=== PATIENT | female | born 2000 | race African-American/Black ===

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

== ENCOUNTER 2023-08-10 02:56 | Emergency (ER) | payer SELFPAY ==
--- OUTSIDE RECORDS SUMMARY | 2023-08-10 02:59 | XMS REPORT | Continuity of Care Document ---
Author Name Unknown Address [address] [facility]. [address] [place] [address] [facility] Address [address] [facility] [address] [place] [address] Care Team Providers Care Core Shaper Sides Name Role Phone PCP, PATIENT DOES NOT HAVE A Primary Care Physic michaelle Unavailable Nurse, [facility] Attending Clinician Unavailable Hailey Mendieta MD Attending Clinician [phone] HAILEY MENDIETA Attending Clinician Unavailable Melody Prado MD Attending Clinician + [phone] MELODY PRADO Attending Clinician JUAN Rossi Attending Clinician JUAN Denton Attending Clinician Hayder triana Doctor Unassigned, [place] Attending Clinician U navailable Payers Payer Name Policy Type Policy Number Effective Date Expirati on Date Source [facility] [id number] 2023 00:00:00 Problems Condition Name Condition Details Condition Category Status Onset Date Resolution Date Last Treatment Date Treating Clinician Comments Source examinatio n or test, negative result examinatio n or test, negative result Disease Active 8-24 00:00: 00 [facility] Encounter for management and injection of depo-Prove ra Encounter for management and injection of depo-Prove ra Disease Active 09-24 00:00: 00 [facility] Need for hepatitis C screening test Need for hepatitis C screening test Disease Active 09-24 00:00: 00 [facility] Need for vaccinatio n Need for vaccinatio n Disease Active 8 00:00: 00 [facility] Other speech disturbanc e Other speech disturbanc e Disease Active 2006-02 00:00: 00 [facility] Allergies, Adverse Reactions, Alerts Allergy Name Allergy Type Status Severity Reaction(s) Onset Date Inactive Date Treating Clinician Comments Source NO KNOWN ALLERGIE S Drug Class Active [facility] Social History Social Habit Start Date Stop Date Quantity Comments Source Gender identity [facility] of tobacco use Passive smoker [facility] Alcohol intake 2023-05-18 00:00:00 2023-05-18 00:00:00 Current drinker of alcohol (finding) [facility] History of Social function 2022-12-01 00:00:00 2022-12-01 00:00:00 [facility] Exposure to SARS-CoV-2 (event) 2022-06-06 00:00:00 2022-06-16 09:32:00 Not sure [facility] Tobacco use and exposure 2021-09-24 00:00:00 2021-09-24 00:00:00 Smokeless tobacco non-user [facility] Sex Assigned At 2002 00:00:00 2000 00:00:00 [facility] Smoking Status Start Date Stop Date Source Never smoked tobacco [facility] Medications Ordered Medication Name Filled Medication Name Start Date Stop Date Current Medication? Ordering Clinician Indication Dosage Frequency Signature (SIG) Comments Components Source medroxyPROG ESTERone (DEPO-PROVE RA) syringe 150 mg 05-17 20:15: 00 05-17 19:27 :00 No [id number] 150mg 150 mg, Intramuscu lar, ONCE, 1 dose, On Wed05/18/23 at 1515, Routine [facility] medroxyPROG ESTERone (DEPO-PROVE RA) injection 150 mg 0 -09 21:15: 00 02-23 20:38 :00 No [id number] 150mg [facility] medroxyPROG ESTERone (DEPO-PROVE RA) syringe 150 mg 2022-02 0-17 14:30: 00 12-01 13:33 :00 No [id number] 150mg [facility] medroxyPROG ESTERone (DEPO-PROVE RA) syringe 150 mg 2022-0 - 14:45: 00 09-08 13:55 :00 No [id number] 150mg [facility] medroxyPROG ESTERone (DEPO-PROVE RA) syringe 150 mg 0 06-16 15:45: 00 06-16 14:54 :00 No [id number] [facility]-PROVE RA[facility] syringe 150 mg 0 -08 17:30: 00 03-25 16:33 :00 No [id number] 150mg [facility] medroxyPROG ESTERone (DEPO-PROVE RA) syringe 150 mg 2021-02-16 17:45: 00 12-31 16:48 :00 No [id number] [facility] (DEPO-PROVE RA) injection 150 mg -24 20:00: 00 10-08 19:11 :00 No [id number] 150mg Univer [facility] Immunizations Ordered Immunization Name Filled Immunization Name Date Status Comments Source SARS-COV-2 COVID-19 PFIZER VACCINE 2021-09-03 00:00:00 Completed [facility] SARS-COV-2 COVID-19 PFIZER VACCINE 2021-09-03 00:00:00 Completed [facility] SARS-COV-2 COVID-19 PFIZER VACCINE 2021-09-03 00:00:00 Completed [facility] SARS-COV-2 COVID-19 PFIZER VACCINE 2021-09-03 00:00:00 Completed [facility] SARS-COV-2 COVID-19 PFIZER VACCINE 2021-09-03 00:00:00 Completed [facility] SARS-COV-2 COVID-19 PFIZER VACCINE 2021-09-03 00:00:00 Completed [facility] SARS-COV-2 COVID-19 PFIZER VACCINE 2021-08-15 00:00:00 Completed [facility] SARS-COV-2 COVID-19 PFIZER VACCINE 2021-08-15 00:00:00 Completed [facility] SARS-COV-2 COVID-19 PFIZER VACCINE 2021-08-15 00:00:00 Completed [facility] SARS-COV-2 COVID-19 PFIZER VACCINE 2021-08-15 00:00:00 Completed [facility] SARS-COV-2 COVID-19 PFIZER VACCINE 2021-08-15 00:00:00 Completed [facility] SARS-COV-2 COVID-19 PFIZER VACCINE 2021-08-15 00:00:00 Completed [facility] Influenza Virus Vaccine 2007-02-01 00:00:00 Completed [facility] Influenza Virus Vaccine 2007-02-01 00:00:00 Completed [facility] Influenza Virus Vaccine 2007-02-01 00:00:00 Completed [facility] Influenza Virus Vaccine 2007-02-01 00:00:00 Completed [facility] Influenza Virus Vaccine 2007-02-01 00:00:00 Completed [facility] Influenza Virus Vaccine 2007-02-01 00:00:00 Completed [facility] HEPATITIS A 2006-09-22 00:00:00 Completed [facility] HEPATITIS A 2006-09-22 00:00:00 Completed [facility] HEPATITIS A 2006-09-22 00:00:00 Completed [facility] HEPATITIS A 2006-09-22 00:00:00 Completed [facility] HEPATITIS A 2006-09-22 00:00:00 Completed [facility] HEPATITIS A 2006-09-22 00:00:00 Completed [facility] Proquad (MMR/VARICELLA) 2006-08-06 00:00:00 Completed [facility] DTAP 2006-08-06 00:00:00 Completed [facility] Polio (IPV/OPV) 2006-08-06 00:00:00 Completed [facility] Proquad (MMR/VARICELLA) 2006-08-06 00:00:00 Completed [facility] DTAP 2006-08-06 00:00:00 Completed [facility] Polio (IPV/OPV) 2006-08-06 00:00:00 Completed [facility] Proquad (MMR/VARICELLA) 2006-08-06 00:00:00 Completed [facility] DTAP 2006-08-06 00:00:00 Completed [facility] Polio (IPV/OPV) 2006-08-06 00:00:00 Completed [facility] Proquad (MMR/VARICELLA) 2006-08-06 00:00:00 Completed [facility] DTAP 2006-08-06 00:00:00 Completed [facility] Polio (IPV/OPV) 2006-08-06 00:00:00 Completed [facility] Proquad (MMR/VARICELLA) 2006-08-06 00:00:00 Completed [facility] DTAP 2006-08-06 00:00:00 Completed [facility] Polio (IPV/OPV) 2006-08-06 00:00:00 Completed [facility] Proquad (MMR/VARICELLA) 2006-08-06 00:00:00 Completed [facility] DTAP 2006-08-06 00:00:00 Completed [facility] Polio (IPV/OPV) 2006-08-06 00:00:00 Completed [facility] HEPATITIS A 2006-02-12 00:00:00 Completed [facility] HEPATITIS A 2006-02-12 00:00:00 Completed [facility] HEPATITIS A 2006-02-12 00:00:00 Completed [facility] HEPATITIS A 2006-02-12 00:00:00 Completed [facility] HEPATITIS A 2006-02-12 00:00:00 Completed [facility] HEPATITIS A 2006-02-12 00:00:00 Completed [facility] DTAP 2004-09-22 00:00:00 Completed [facility] Pneumococcal 7 Conjugate, PCV7 (Prevnar7) 2004-09-22 00:00:00 Completed [facility] DTAP 2004-09-22 00:00:00 Completed [facility] Pneumococcal 7 Conjugate, PCV7 (Prevnar7) 2004-09-22 00:00:00 Completed [facility] DTAP 2004-09-22 00:00:00 Completed [facility] Pneumococcal 7 Conjugate, PCV7 (Prevnar7) 2004-09-22 00:00:00 Completed [facility] DTAP 2004-09-22 00:00:00 Completed [facility] Pneumococcal 7 Conjugate, PCV7 (Prevnar7) 2004-09-22 00:00:00 Completed [facility] DTAP 2004-09-22 00:00:00 Completed [facility] Pneumococcal 7 Conjugate, PCV7 (Prevnar7) 2004-09-22 00:00:00 Completed [facility] DTAP 2004-09-22 00:00:00 Completed [facility] Pneumococcal 7 Conjugate, PCV7 (Prevnar7) 2004-09-22 00:00:00 Completed [facility] Hep B, Adol or Pedi Dosage 2003-04-12 00:00:00 Completed [facility] Hep B, Adol or Pedi Dosage 2003-04-12 00:00:00 Completed [facility] Hep B, Adol or Pedi Dosage 2003-04-12 00:00:00 Completed [facility] Hep B, Adol or Pedi Dosage 2003-04-12 00:00:00 Completed [facility] Hep B, Adol or Pedi Dosage 2003-04-12 00:00:00 Completed [facility] Hep B, Adol or Pedi Dosage 2003-04-12 00:00:00 Completed [facility] DTAP Unknown Completed [facility] Pneumococcal 7 Conjugate, PCV7 (Prevnar7) Unknown Completed [facility] Hep B, Adol or Pedi Dosage Unknown Completed [facility] HEPATITIS A Unknown Completed [facility] Proquad (MMR/VARICELLA) Unknown Completed [facility] DTAP Unknown Completed [facility] Polio (IPV/OPV) Unknown Completed [facility] HEPATITIS A Unknown Completed [facility] Influenza Virus Vaccine Unknown Completed [facility] SARS-COV-2 COVID-19 PFIZER VACCINE Unknown Completed [facility] SARS-COV-2 COVID-19 PFIZER VACCINE Unknown Completed [facility] SARS-COV-2 COVID-19 PFIZER VACCINE Unknown Completed [facility] SARS-COV-2 COVID-19 PFIZER VACCINE Unknown Completed [facility] DTaP, Unspecified Formulation Unknown Completed [facility] DTaP, Unspecified Formulation Unknown Completed [facility] Influenza Virus Vaccine - Whole Unknown Completed [facility] HPV Unknown Completed [facility] Meningococcal Polysaccharide (groups A, C, Y and W-135) conjugate vaccine (MCV4P) Unknown Completed [facility] IPV Unknown Completed [facility] TDAP Unknown Completed [facility] DTAP Unknown Completed [facility] Pneumococcal 7 Conjugate, PCV7 (Prevnar7) Unknown Completed [facility] Hep B, Adol or Pedi Dosage Unknown Completed [facility] HEPATITIS A Unknown Completed [facility] Proquad (MMR/VARICELLA) Unknown Completed [facility] DTAP Unknown Completed [facility] Polio (IPV/OPV) Unknown Completed [facility] HEPATITIS A Unknown Completed [facility] Influenza Virus Vaccine Unknown Completed [facility] SARS-COV-2 COVID-19 PFIZER VACCINE Unknown Completed [facility] SARS-COV-2 COVID-19 PFIZER VACCINE Unknown Completed [facility] SARS-COV-2 COVID-19 PFIZER VACCINE Unknown Completed [facility] SARS-COV-2 COVID-19 PFIZER VACCINE Unknown Completed [facility] DTaP, Unspecified Formulation Unknown Completed [facility] DTaP, Unspecified Formulation Unknown Completed [facility] Influenza Virus Vaccine - Whole Unknown Completed [facility] HPV Unknown Completed [facility] Meningococcal Polysaccharide (groups A, C, Y and W-135) conjugate vaccine (MCV4P) Unknown Completed [facility] IPV Unknown Completed [facility] TDAP Unknown Completed [facility] DTAP Unknown Completed [facility] Pneumococcal 7 Conjugate, PCV7 (Prevnar7) Unknown Completed [facility] Hep B, Adol or Pedi Dosage Unknown Completed [facility] HEPATITIS A Unknown Completed [facility] Proquad (MMR/VARICELLA) Unknown Completed [facility] DTAP Unknown Completed [facility] Polio (IPV/OPV) Unknown Completed [facility] HEPATITIS A Unknown Completed [facility] Influenza Virus Vaccine Unknown Completed [facility] SARS-COV-2 COVID-19 PFIZER VACCINE Unknown Completed [facility] SARS-COV-2 COVID-19 PFIZER VACCINE Unknown Completed [facility] SARS-COV-2 COVID-19 PFIZER VACCINE Unknown Completed [facility] SARS-COV-2 COVID-19 PFIZER VACCINE Unknown Completed [facility] DTaP, Unspecified Formulation Unknown Completed [facility] DTaP, Unspecified Formulation Unknown Completed [facility] Influenza Virus Vaccine - Whole Unknown Completed [facility] HPV Unknown Completed [facility] Meningococcal Polysaccharide (groups A, C, Y and W-135) conjugate vaccine (MCV4P) Unknown Completed [facility] IPV Unknown Completed [facility] TDAP Unknown Completed [facility] DTAP Unknown Completed [facility] Pneumococcal 7 Conjugate, PCV7 (Prevnar7) Unknown Completed [facility] Hep B, Adol or Pedi Dosage Unknown Completed [facility] HEPATITIS A Unknown Completed [facility] Proquad (MMR/VARICELLA) Unknown Completed [facility] DTAP Unknown Completed [facility] Polio (IPV/OPV) Unknown Completed [facility] HEPATITIS A Unknown Completed [facility] Influenza Virus Vaccine Unknown Completed [facility] SARS-COV-2 COVID-19 PFIZER VACCINE Unknown Completed [facility] SARS-COV-2 COVID-19 PFIZER VACCINE Unknown Completed [facility] SARS-COV-2 COVID-19 PFIZER VACCINE Unknown Completed [facility] SARS-COV-2 COVID-19 PFIZER VACCINE Unknown Completed [facility] DTaP, Unspecified Formulation Unknown Completed [facility] DTaP, Unspecified Formulation Unknown Completed [facility] Influenza Virus Vaccine - Whole Unknown Completed [facility] HPV Unknown Completed [facility] Meningococcal Polysaccharide (groups A, C, Y and W-135) conjugate vaccine (MCV4P) Unknown Completed [facility] IPV Unknown Completed [facility] TDAP Unknown Completed [facility] DTAP Unknown Completed [facility] Pneumococcal 7 Conjugate, PCV7 (Prevnar7) Unknown Completed [facility] Hep B, Adol or Pedi Dosage Unknown Completed [facility] HEPATITIS A Unknown Completed [facility] Proquad (MMR/VARICELLA) Unknown Completed [facility] DTAP Unknown Completed [facility] Polio (IPV/OPV) Unknown Completed [facility] HEPATITIS A Unknown Completed [facility] Influenza Virus Vaccine Unknown Completed [facility] SARS-COV-2 COVID-19 PFIZER VACCINE Unknown Completed [facility] SARS-COV-2 COVID-19 PFIZER VACCINE Unknown Completed [facility] SARS-COV-2 COVID-19 PFIZER VACCINE Unknown Completed [facility] SARS-COV-2 COVID-19 PFIZER VACCINE Unknown Completed [facility] DTaP, Unspecified Formulation Unknown Completed [facility] DTaP, Unspecified Formulation Unknown Completed [facility] Influenza Virus Vaccine - Whole Unknown Completed [facility] HPV Unknown Completed [facility] Meningococcal Polysaccharide (groups A, C, Y and W-135) conjugate vaccine (MCV4P) Unknown Completed [facility] IPV Unknown Completed [facility] TDAP Unknown Completed [facility] Vital Signs Vital Name Observation Time Observation Value Comments S ource Respiratory rate 2023-05-18 19:26:00 18 /min [facility] Body height 2023-05-18 19:26:00 162.6 cm [facility] Body weight 2023-05-18 19:26:00 64.411 kg [facility] BMI 2023-05-18 19:26:00 24.37 kg/m2 [facility] Systolic blood pressure 2023-05-18 19:26:00 131 mm[Hg] [facility] Diastolic blood pressure 2023-05-18 19:26:00 87 mm[Hg] [facility] Heart rate 2023-05-18 19:26:00 87 /min [facility] Systolic blood pressure 2023-02-23 20:35:00 118 mm[Hg] [facility] Diastolic blood pressure 2023-02-23 20:35:00 81 mm[Hg] [facility] Heart rate 2023-02-23 20:35:00 71 /min [facility] Body temperature 2023-02-23 20:35:00 36.78 Rox [facility] Respiratory rate 2023-02-23 20:35:00 16 /min [facility] Body height 2023-02-23 20:35:00 162.6 cm [facility] Body weight 2023-02-23 20:35:00 63.458 kg [facility] BMI 2023-02-23 20:35:00 24.01 kg/m2 [facility] Oxygen saturation in Arterial blood by Pulse oximetry 2023-02-23 20:35:00 98 /min [facility] Systolic blood pressure 2022-12-01 13:25:00 137 mm[Hg] [facility] Diastolic blood pressure 2022-12-01 13:25:00 81 mm[Hg] [facility] Heart rate 2022-12-01 13:25:00 76 /min [facility] Respiratory rate 2022-12-01 13:25:00 18 /min [facility] Body height 2022-12-01 13:25:00 162.6 cm [facility] Body weight 2022-12-01 13:25:00 63.05 kg [facility] BMI 2022-12-01 13:25:00 23.86 kg/m2 [facility] Systolic blood pressure 2022-09-08 13:49:00 115 mm[Hg] [facility] Diastolic blood pressure 2022-09-08 13:49:00 73 mm[Hg] [facility] Heart rate 2022-09-08 13:49:00 67 /min [facility] Respiratory rate 2022-09-08 13:49:00 18 /min [facility] Body height 2022-09-08 13:49:00 162.6 cm [facility] Body weight 2022-09-08 13:49:00 61.689 kg [facility] BMI 2022-09-08 13:49:00 23.34 kg/m2 [facility] Systolic blood pressure 2022-06-16 14:52:00 122 mm[Hg] [facility] Diastolic blood pressure 2022-06-16 14:52:00 80 mm[Hg] [facility] Heart rate 2022-06-16 14:52:00 82 /min [facility] temperature 2022-06-16 14:52:00 36.67 Rox [facility] Respiratory rate 2022-06-16 14:52:00 16 /min [facility] Body height 2022-06-16 14:52:00 162.6 cm [facility] weight 2022-06-16 14:52:00 58.06 kg [facility] BMI 2022-06-16 14:52:00 21.97 kg/m2 [facility] Systolic blood pressure 2022-03-25 16:28:00 123 mm[Hg] [facility] Diastolic blood pressure 2022-03-25 16:28:00 86 mm[Hg] [facility] Heart rate 2022-03-25 16:28:00 89 /min [facility] Respiratory rate 2022-03-25 16:28:00 18 /min [facility] Body height 2022-03-25 16:28:00 162.6 cm [facility] Body weight 2022-03-25 16:28:00 57.607 kg [facility] BMI 2022-03-25 16:28:00 21.80 kg/m2 [facility] Systolic blood pressure 2021-12-31 16:27:00 122 mm[Hg] [facility] Diastolic blood pressure 2021-12-31 16:27:00 79 mm[Hg] [facility] Heart rate 2021-12-31 16:27:00 80 /min [facility] Body temperature 2021-12-31 16:27:00 36.89 Rox [facility] Respiratory rate 2021-12-31 16:27:00 16 /min [facility] Body height 2021-12-31 16:27:00 162.6 cm [facility] Body weight 2021-12-31 16:27:00 59.194 kg [facility] BMI 2021-12-31 16:27:00 22.40 kg/m2 [facility] Systolic blood pressure 2021-10-08 19:03:00 120 mm[Hg] [facility] [facility] Diastolic blood pressure 2021-10-08 19:03:00 78 mm[Hg] [facility] Heart rate 2021-10-08 19:03:00 76 /min [facility] Body temperature 2021-10-08 19:03:00 36.61 Rox [facility] Respiratory rate 2021-10-08 19:03:00 16 /min [facility] Body height 2021-10-08 19:03:00 162.6 cm [facility] Body weight 2021-10-08 19:03:00 58.741 kg [facility] BMI 2021-10-08 19:03:00 22.23 kg/m2 [facility] Oxygen saturation in Arterial blood by Pulse oximetry 2021-10-08 19:03:00 100 /min [facility] Procedures Procedure Date / Time Performed Performing Clinicia n Source ASSIGNMENT OF BENEFITS 2022-12-01 13:07:57 Docto r Unassigned, [place] [facility] POCT TEST 2021-10-08 00:00:00 Lucretia Veras [facility] Encounters Start Date/Time End Date/Time Encounter Type Admission Type Attending Clinicians Care Facility Care Department Encounter ID Source 2023-08-10 15:45:00 2023-08-10 15:45:00 Out[place] [id number] [facility] 2023-08-10 14:30:00 2023-08-10 14:30:00 Outpatient [place] [id number] [facility] 2023-05-18 14:30:00 2023-05-18 14:30:00 Nurse Visit Nurse, Selina [facility] AdHailey borrero [facility] [id number] 350.1.13.10 [id number] [id number] [facility] 2023-05-18 14:30:00 2023-05-18 14:25:58 Outpatient R HAILEY MENDIETA [place] [id number] [facility] 2023-02-23 14:30:00 2023-02-23 14:36:37 [facility] 1..114 350.1.13.10 4.2.7.2.686 [id number] [facility] 2023-02-23 14:30:00 2023-02-23 14:36:37 Outpatient R MAGGIE Acosta, MELODY HUFFMAN-LUCI Acosta, [facility] [id number] [facility] 2022-12-01 08:00:00 2022-12-01 08:30:24 Outpatient [facility] [id number] [facility] 2022-12-01 08:00:00 2022-12-01 08:30:24 [facility] 1..114 350.1.13.10 4.2.7.2.686 [id number] 134 [id number] [facility] 2022-12-01 00:00:00 2022-12-01 00:00:00 Orders Only Doctor Unassigned, [place] [facility] [id number] 350.1.13.10 4.2.7.2.686 [id number] [facility] 2022-09-08 09:00:00 2022-09-08 09:00:00 [facility] [id number] 350.1.13.10 4.2.7.2.686 [id number] [facility] 2022-09-08 09:00:00 2022-09-08 08:49:25 Outpatient R JUAN VERAS CHERYAL [place] [id number] [facility] 2022-06-17 09:30:00 2022-06-17 09:30:00 Outpatient R JUAN VERAS CHERYAL [place] [id number] [facility] 2022-06-16 10:00:00 2022-06-16 10:00:00 [facility] [id number] 350.1.13.10 4.2.7.2.686 [id number] [facility] 2022-06-16 10:00:00 2022-06-16 09:51:31 Outpatient R JUAN VERAS CHERYAL [place] [id number] [facility] 2022-03-25 09:30:00 2022-03-25 10:29:02 Outpatient R JUAN VERAS CHERYAL [place] [id number] [facility] 2022-03-25 09:30:00 2022-03-25 10:29:02 [facility] [id number] 350.1.13.10 4.2.7.2.686 [id number] [facility] 2021-12-31 10:30:00 2021-12-31 10:36:07 Outpatient R JUAN VERAS CHERYAL [place] [id number] [facility] 2021-12-31 10:30:00 2021-12-31 10:36:07 Nurse Visit Nurse, [facility] Juan Veras [facility] [id number] 350.1.13.10 4.2.7.2.686 [id number] [facility] 2021-10-08 13:45:00 2021-10-08 14:17:50 Office Visit JeniferJuan cleaning [facility] [id number] 350.1.13.10 4.2.7.2.686 [id number] [facility] 2021-10-08 13:45:00 2021-10-08 14:17:50 Outpatient R RITOJUAN RITO JUAN [place] [id number] [facility] 2021-10-08 13:45:00 2021-10-08 13:45:00 Outpatient R AKANKSHA VERASARAM RITO JUAN [place] [id number] [facility] 2021-10-08 09:15:00 2021-10-08 09:15:00 Outpatient R RITO AKANKSHAARAM RITO JUAN [place] [id number] [facility] 2021-09-24 09:00:00 2021-09-24 09:37:57 Office Visit JeniferarsariJuan crump [facility] [id number] 350.1.13.10 4.2.7.2.686 [id number] [facility] 2021-09-24 09:00:00 2021-09-24 09:37:57 Outpatient R JUAN VERAS CHERARAM [place] [id number] [facility] 2021-09-24 09:00:00 2021-09-24 09:37:57 Outpatient R JUAN VERAS CHERARAM [place] [id number] [facility] 2021-09-24 09:00:00 2021-09-24 09:00:00 Outpatient R JUAN VERAS CHERYAL [place] [id number] [facility] 2021-09-24 00:00:00 2021-09-24 00:00:00 Orders Only Doctor Unassigned, [place] [facility] [id number] 350.1.13.10 4.2.7.2.686 [id number] [facility] Results Test Description Test Time Test Comments Results Result Co mments Source [id number] 19:11:00* Test Item Value Reference Range Interpretation Comme nts POCT PREG (test code = 1605) Negative On board controls acceptable with C Line (test code = 3574) Yes POCT PREG LOT # (test code = 3575) POCT PREG TEST DATE ( test code = 3576) [facility]
[2023-08-10] MEDS ORDERED: ACETAMINOPHEN 500 MG TAB ONE (03:20)
[2023-08-10] MEDS ORDERED: methocarbamoL 500 MG TAB ONE (03:20)
--- NOTE | 2023-08-10 05:13 | ER ---
Nurse's Notes [facility] Name: Vini Montelongo Age: 23 yrs Sex: Female : 2000 Arrival Date: 08/10/2023 Time: 02:56 Bed 7 Private MD: Diagnosis: Sprain of foot Presentation: 08/09 03:17 Chief complaint: Patient states: jumped off the porch Wednesday evening and landed wrong tm6 on my left foot. Top of left foot painful to touch, can still move toes, and has full sensation. Coronavirus screen: Vaccine status: Patient reports receiving the 2nd dose of the covid vaccine. Ebola Screen: Patient negative for fever greater than or equal to 101.5 degrees Fahrenheit, and additional compatible Ebola Virus Disease symptoms Patient denies exposure to infectious person. Patient denies travel to an Ebola-affected area in the 21 days before illness onset. No symptoms or risks identified at this time. Initial Sepsis Screen: Does the patient meet any 2 criteria? No. Patient's initial sepsis screen is negative. Does the patient have a suspected source of infection? No. Patient's initial sepsis screen is negative. Risk Assessment: Do you want to hurt yourself or someone else? Patient reports no desire to harm self or others. Onset of symptoms was August 09, 2023. 03:17 Method Of Arrival: Wheelchair tm6 03:17 Acuity: [place] 4 tm6 Triage Assessment: 03:19 General: Appears uncomfortable, Behavior is calm, cooperative. Pain: Complains of pain tm6 in dorsum of left foot Pain does not radiate. Pain currently is 10 out of 10 on a pain scale. Quality of pain is described as tender, throbbing, Pain began 1 day ago. Aggravated by weight bearing. EENT: No deficits noted. No signs and/or symptoms were reported regarding the EENT system. Neuro: Level of Consciousness is awake, alert, obeys commands, Oriented to person, place, time, situation. Cardiovascular: No deficits noted. Patient's skin is warm and dry. Respiratory: Airway is patent Respiratory effort is even, unlabored, Respiratory pattern is regular, symmetrical. GI: No signs and/or symptoms were reported involving the gastrointestinal system. Abdomen is flat, non-distended. : No signs and/or symptoms were reported regarding the genitourinary system. Derm: No signs and/or symptoms reported regarding the dermatologic system. Musculoskeletal: Swelling present in left foot Tenderness present in dorsum of left foot Reports pain in dorsum of left foot Pain is 10 out of 10 on a pain scale. 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 - Infectious Disease History:: Denies. - Social history:: Smoking status: Reported history of juuling and/or vaping. Patient/guardian denies using alcohol. Screenin:22 [facility] ED Fall Risk Assessment (Adult) History of falling in the last 3 months, tm6 including since admission Yes- single mechanical fall (1 pt) Confusion or Disorientation No (0 pts) Intoxicated or Sedated No (0 pts) Impaired Gait Yes (1 pt) Mobility Assist Device Used No (0 pt) Altered Elimination No (0 pt) Score/Fall Risk Level 0 - 2 = Low Risk Oriented to surroundings, Maintained a safe environment, Educated pt \T\ family on fall prevention, incl call for assistance when getting out of bed. Abuse screen: Denies threats or abuse. Denies injuries from another. Nutritional screening: No deficits noted. Tuberculosis screening: No symptoms or risk factors identified. Assessment: 03:22 Reassessment: see triage assessment. tm6 04:14 Reassessment: Patient and/or family updated on plan of care and expected duration. Pain ha1 level reassessed. Patient is alert, oriented x 3, equal unlabored respirations, skin warm/dry/pink. 05:10 Reassessment: Patient and/or family updated on plan of care and expected duration. Pain ha1 level reassessed. Patient is alert, oriented x 3, equal unlabored respirations, skin warm/dry/pink. 05:21 Reassessment: patient stated she was tired of waiting and was leaving. tm6 05:22 Reassessment: patient left before discharge paperwork was printed by provider. tm6 Vital Signs: 03:17 BP 135 / 100; Pulse 83; Resp 19; Temp 97.7(TE); Pulse Ox 100% on R/A; Weight 65.77 kg; tm6 Height 5 ft. 6 in. ; Pain 10/10; 04:14 BP 116 / 75; Pulse 71; Resp 17 S; Pulse Ox 100% on R/A; ha1 05:20 BP 112 / 80; Pulse 70; Resp 19; Temp 97.7(TE); Pulse Ox 99% on R/A; Pain 0/10; tm6 03:17 Body Mass Index 23.40 (65.77 kg, 167.64 cm) tm6 03:17 Pain Scale: Adult tm6 05:20 Pain Scale: Adult tm6 ED Course: 03:00 Patient arrived in ED. jj6 03:02 Shahriar Rubi MD is Attending Physician. ec2 03:09 Shannon Preston, LANDRY is Primary Nurse. tm6 03:19 Triage completed. tm6 03:19 Arm band placed on right wrist. tm6 03:22 Patient has correct armband on for positive identification. Bed in low position. Call tm6 light in reach. Side rails up X 1. Provided Education on: use of call bob. Client placed on continuous cardiac and pulse oximetry monitoring. NIBP monitoring applied. Pulse ox on. NIBP on. Door closed. Noise minimized. 04:04 Foot Left 3 View XRAY In Process Unspecified. EDMS 04:04 Ankle Left 3 View XRAY In Process Unspecified. EDMS 04:20 Dominic wrap to left ankle. ha1 05:22 No provider procedures requiring assistance completed. Patient did not have IV access tm6 during this emergency room visit. Administered Medications: 03:23 Drug: Methocarbamol PO 500 mg PO once Route: PO; ha1 04:30 Follow up: Response: No adverse reaction; Marked relief of symptoms; Pain is decreased ha1 03:23 Drug: Acetaminophen PO 1000 mg PO once Route: PO; tm6 04:30 Follow up: Response: No adverse reaction; Marked relief of symptoms ha1 Medication: 03:22 VIS not applicable for this client. tm6 Outcome: 05:12 Discharge ordered by . ec2 05:23 Discharged to home via wheelchair, with family, tm6 05:23 Condition: stable 05:23 Discharge instructions given to unable to give d/c instructions, as patient left prior to receiving discharge paperwork 05:23 Patient left the ED. tm6 Signatures: Dispatcher [employer] Vivian Francois jj6 Tahmina Boyer RN RN ha1 Shahriar Rubi MD MD ec2 Shannon Preston RN RN tm6
--- NOTE | 2023-08-10 05:13 | EDPHYS ---
Physician Documentation [facility] Name: Vini Montelongo Age: 23 yrs Sex: Female : 2000 Arrival Date: 08/10/2023 Time: 02:56 Bed 7 Private MD: ED Physician Shahriar Rubi HPI: 08/09 03:16 This 23 yrs old Black Female presents to ER via Unassigned with complaints of Ankle ec2 Injury. 03:16 Patient arrives today for evaluation of left flank pain. Patient reports that she had ec2 jumped and subsequently injured her left foot. States ankle with minimal pain, pain is mostly localized to the dorsum of the left foot. Denies any other injuries head strike or neck pain.. 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 - Infectious Disease History:: Denies. - Social history:: Smoking status: Reported history of juuling and/or vaping. Patient/guardian denies using alcohol. ROS: 03:16 Constitutional: as per hpi ec2 Exam: 03:16 Constitutional: GEN: NAD Head: atraumatic Eyes: EOMI Ears: External ears are ec2 normal. CV: regular rate LUNGS: no respiratory distress ABD: non-distended SKIN: no evidence of rashes MSK: TTP to the dorsum of the left foot, intact dorsalis pedis, intact distal neurovascular status. NEURO: moves all extremities equally Vital Signs: 03:17 BP 135 / 100; Pulse 83; Resp 19; Temp 97.7(TE); Pulse Ox 100% on R/A; Weight 65.77 kg; tm6 Height 5 ft. 6 in. ; Pain 10/10; 04:14 BP 116 / 75; Pulse 71; Resp 17 S; Pulse Ox 100% on R/A; ha1 05:20 BP 112 / 80; Pulse 70; Resp 19; Temp 97.7(TE); Pulse Ox 99% on R/A; Pain 0/10; tm6 03:17 Body Mass Index 23.40 (65.77 kg, 167.64 cm) tm6 03:17 Pain Scale: Adult tm6 05:20 Pain Scale: Adult tm6 MDM: 03:05 Patient medically screened. ec2 03:16 Data reviewed: vital signs. ED course: Patient arrives today for evaluation of left ec2 foot pain. Examination remarkable for MSK findings as noted above. Will obtain radiograph of the left ankle and left foot. Differential diagnosis include bony fracture, contusion, sprain. 05:13 ED course: Pending radiographs of the foot. Patient states that she did not want a wait ec2 for results. Will discharge home, patient expressed understanding that we do not have the results and she may have a broken bone.. 08/09 03:16 Order name: Foot Left 3 View XRAY ec2 08/09 03:16 Order name: Ankle Left 3 View XRAY ec2 08/09 03:16 Order name: Dominic Wrap; Complete Time: 04:14 ec2 Administered Medications: 03:23 Drug: Methocarbamol PO 500 mg PO once Route: PO; ha1 04:30 Follow up: Response: No adverse reaction; Marked relief of symptoms; Pain is decreased ha1 03:23 Drug: Acetaminophen PO 1000 mg PO once Route: PO; tm6 04:30 Follow up: Response: No adverse reaction; Marked relief of symptoms ha1 Disposition Summary: 08/10/23 05:12 Discharge Ordered Notes: Location: Home ec2 Condition: Stable ec2 Diagnosis - Sprain of foot ec2 Followup: ec2 - With: Private Physician - When: - Reason: Re-evaluation by your physician Discharge Instructions: - Discharge Summary Sheet ec2 - Foot Sprain ec2 Forms: - Medication Reconciliation Form ec2 - Antibiotic Education ec2 - Prescription Opioid Use ec2 - Patient Portal Instructions ec2 - Leadership Thank You Letter ec2 Signatures: Dispatcher [employer] Tahmina Joel RN RN ha1 Shahriar Rubi MD MD ec2 Shannon Preston RN RN tm6 Corrections: (The following items were deleted from the chart) 05:20 05:12 Crutches ordered. ec2 ha1
[2023-08-10 10:24] VITALS: BP 112/80; TEMP 97.7; O2SAT 99
--- NOTE | 2023-08-10 12:04 | RAD REPORT ---
EXAM DESCRIPTION: RAD - Ankle Left 3 View - 08/10/2023 4:02 am CLINICAL HISTORY: The patient is 23 years old and is Female; PAIN TECHNIQUE: Three views of the left ankle. COMPARISON: No relevant prior studies available. FINDINGS: Bones/joints: Possible free fracture fragment along the dorsal aspect of the TMT joints. No acute fracture or dislocation in the ankle. Soft tissues: Dorsal midfoot soft tissue swelling. IMPRESSION: Possible free fracture fragment along the dorsal aspect of the TMT joints, mid foot. CT follow-up recommended. Electronically signed by: Kristin Cooley MD 08/10/2023 05:21 AM CDT RP ND Due to temporary technical issues with the PACS/Fluency reporting system, reports are being signed by the in house radiologists without review as a courtesy to insure prompt reporting. The interpreting radiologist is fully responsible for the content of the report.
--- NOTE | 2023-08-10 12:04 | RAD REPORT ---
EXAM DESCRIPTION: RAD - Foot Left 3 View - 08/10/2023 4:02 am CLINICAL HISTORY: The patient is 23 years old and is Female; PAIN TECHNIQUE: Three views of the left foot. COMPARISON: No relevant prior studies available. FINDINGS: Bones/joints: Widening of the Lisfranc joint raising suspicion for injury. No acute fracture. No dislocation. Soft tissues: Dorsal midfoot soft tissue swelling. No radiopaque foreign body. IMPRESSION: Widening of the Lisfranc joint raising suspicion for injury. Left foot CT or MRI follow- up recommended. Electronically signed by: Kristin Cooley MD 08/10/2023 05:19 AM CDT RP ND Due to temporary technical issues with the PACS/Fluency reporting system, reports are being signed by the in house radiologists without review as a courtesy to insure prompt reporting. The interpreting radiologist is fully responsible for the content of the report.
== END 2023-08-10 05:23 | disposition home or self-care (01) ==
LOC: ER 02:56
DX: S93.602A Unspecified sprain of left foot, initial encounter (principal)